=== PATIENT | male | born 1945 | race Caucasian/White ===

== ENCOUNTER → 2018-09-14 10:56 | Outpatient (CLI) | payer OTHER, SELFPAY ==
--- NOTE | 2018-09-14 10:59 | DI.RAD.S_ITS ---
PROCEDURE: XR CHEST 2V INDICATIONS: cough TECHNIQUE: 2 views of the chest were acquired. COMPARISON: None. FINDINGS: Surgical changes and devices: None. Lungs and pleura: There is diffuse interstitial prominence with streaky bibasilar opacities, more pronounced on the left. No focal consolidation. Minimal prominence of upper lung pulmonary vasculature on the left. No pneumothorax. No substantial pleural effusion, but thickening of the right minor fissure suggests a small amount of fluid. Mediastinum: Mediastinal contours are normal. Heart size is normal. Bones and chest wall: No suspicious bony abnormalities. Soft tissues appear unremarkable. IMPRESSION: Diffuse interstitial prominence with streaky left greater than right bibasilar opacities and probable tiny right pleural effusion. Findings may represent an infectious/inflammatory process without focal consolidation. Early pulmonary edema may have a similar appearance if clinically appropriate. Dictated by: Devaughn Mcgill M.D. on 09/14/2018 at 11:12 Approved by: Devaughn Mcgill M.D. on 09/14/2018 at 11:17
== END ==
PROVIDERS: Visit Provider Physician Assistant
DX: R05 Cough (principal)
CPT/HCPCS: 71046